=== PATIENT | female | born 1945 | race Caucasian/White ===

== ENCOUNTER 2016-11-05 17:58 | Emergency (ER) | payer MEDICARE, OTHER | END 2016-11-05 19:14 | disposition left against medical advice (07) | LOC: UCEAST 17:58 | DX: S91.339A Puncture wound without foreign body, unspecified foot, initial encounter (principal); W45.0XXA Nail entering through skin, initial encounter; Y93.9 Activity, unspecified; Y92.9 Unspecified place or not applicable; Z53.21 Procedure and treatment not carried out due to patient leaving prior to being seen by health care provider ==

== ENCOUNTER 2016-11-06 11:16 | Emergency (ER) | payer MEDICARE, OTHER ==
[2016-11-06 11:34] VITALS: BP 160/74
[2016-11-06] MEDS ORDERED: Tetan/Diph/Pertus SYR(Tdap)* 0.5 ML SYR(BOOSTRIX) use SYR IM ONE (11:42)
--- NOTE | 2016-11-06 11:55 | UC ---
Skin Complaint HPI - HPI Summary HPI Summary: pt reports that she stepped on a nail on November 03. Pt has been putting triple antibiotic ointment on. Pt is is not UTD for tetanus. - History of Current Complaint Chief Complaint: UCLaceration Time Seen by Provider: 11/06/16 11:40 Stated Complaint: FOOT LACERATION Hx Obtained From: Patient ?: No Onset/Duration: Sudden Onset Skin Exposure Onset/Duration: Days Ago - 4 days ago Timing: Constant Onset Severity: Mild Current Severity: Mild Location: Discrete, Foot (Left) Character: Redness, Painful Aggravating: Touch Alleviating: Other - rest and elevation Associated Signs & Symptoms: Positive: Tenderness Related History: Other: - stepped on nail - Allergy/Home Medications Allergies/Adverse Reactions: Allergies Allergy/AdvReac Type Severity Reaction Status Date / Time No Known Allergies Allergy Verified 08/01/12 15:36 Review of Systems Constitutional: Fever Skin: Other - scab, puncture wound Eyes: Negative ENT: Negative Respiratory: Negative Cardiovascular: Negative Gastrointestinal: Negative Genitourinary: Negative Motor: Negative Neurovascular: Negative Musculoskeletal: Myalgia Neurological: Negative Psychological: Negative All Other Systems Reviewed And Are Negative: Yes PMH/Surg Hx/FS Hx/Imm Hx Previously Healthy: Yes Endocrine History Of: Denies: Diabetes, Thyroid Disease Cardiovascular History Of: Reports: Hypertension Denies: Cardiac Disorders Respiratory History Of: Denies: COPD, Asthma GI/ History Of: Denies: Ulcer - Surgical History Surgical History: None - Family History Known Family History: Positive: Hypertension, Other - Father -- positive CVA Negative: Cardiac Disease, Diabetes - Social History Alcohol Use: Daily Alcohol Amount: 1-2 glasses of wine Substance Use Type: None Smoking Status (MU): Former Smoker When Did the Patient Quit Smoking/Using Tobacco: age 21 - Immunization History Most Recent Tetanus Shot: unknown Physical Exam Triage Information Reviewed: Yes Appearance: Well-Appearing Vital Signs: Initial Vital Signs Temp 98.1 F 11/06/16 11:31 Pulse 74 11/06/16 11:31 Resp 16 11/06/16 11:31 BP 160/74 11/06/16 11:31 Pulse Ox 96 11/06/16 11:31 Vital Signs Reviewed: Yes Eye Exam: Normal Neck exam: Normal Respiratory Exam: Normal Respiratory: Positive: No respiratory distress Musculoskeletal Exam: Normal Neurological Exam: Normal Psychological Exam: Normal Skin Exam: Other - small puncture wound in left mid medial plantar side foot. Tenderness with palpation Course/Dx - Course Course Of Treatment: I discussed with the pt the need to be UTD with tetanus and to watch for S/sx of infection - Differential Diagnoses - Skin Complaint Differential Diagnoses: Cellulitis, Other - puncture wound - Diagnoses Provider Diagnoses: puncture wound. possible tetanus exposure Discharge - Discharge Plan Condition: Stable Disposition: HOME Prescriptions: Cephalexin CAP* [Keflex 500 CAP*] 500 mg PO Q12H #10 cap Patient Education Materials: Puncture Wound (ED) Referrals: Elsa Reyna MD [Primary Care Provider] - If Needed (Please follow up with your PCP or return to clinic as needed. )
== END 2016-11-06 12:14 | disposition home or self-care (01) ==
LOC: UCEAST 11:16
DX: S91.342A Puncture wound with foreign body, left foot, initial encounter (principal); W45.0XXA Nail entering through skin, initial encounter; Y92.9 Unspecified place or not applicable; I10 Essential (primary) hypertension; Z87.891 Personal history of nicotine dependence
CPT/HCPCS: 90471; 90715; 99211; G0010; G0463

== ENCOUNTER 2017-03-15 17:44 | Emergency (ER) | payer MEDICARE, OTHER ==
[2017-03-15 17:52] VITALS: BP 150/86
[2017-03-15] MEDS ORDERED: DOXYcycline CAP(*) 100 MG PO ONE (18:21)
--- NOTE | 2017-03-15 18:39 | UC ---
General HPI - HPI Summary HPI Summary: GRANDSON HAD FLEAS ON BILATERAL ARMS. PATIENT HAS TWO AREA ON FOREARMS WITH SMALL (<1mm) JUMPING INSECT. EARLIER HAD ACTUAL TICK THAT SHE REMOVED FROM CHEST. NO AREA OF REDNESS. NO FEVER. NO JOINT PAIN. 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 - History of Current Complaint Chief Complaint: UCSkin Stated Complaint: TICK BITE Time Seen by Provider: 03/15/17 17:56 Hx Obtained From: Patient Onset/Duration: Sudden Onset, Lasting Hours, Still Present Onset Severity: Mild Current Severity: None Associated Signs & Symptoms: Negative: Cough, Fever, Headache, Nausea, Syncope, SOB - Allergy/Home Medications Allergies/Adverse Reactions: Allergies Allergy/AdvReac Type Severity Reaction Status Date / Time No Known Allergies Allergy Verified 08/01/12 15:36 PMH/Surg Hx/FS Hx/Imm Hx Previously Healthy: Yes - Surgical History Surgical History: None - Family History Known Family History: Positive: Hypertension, Other - Father -- positive CVA Negative: Cardiac Disease, Diabetes - Social History Occupation: Retired Lives: With Family Alcohol Use: Daily Alcohol Amount: 1-2 glasses of wine Substance Use Type: None Smoking Status (MU): Former Smoker When Did the Patient Quit Smoking/Using Tobacco: age 21 - Immunization History Most Recent Tetanus Shot: unknown Review of Systems Constitutional: Negative Skin: Rash - SMALL <1mm JUMPING INSECT ON BILATERAL FOREARMS Eyes: Negative ENT: Negative Respiratory: Negative Cardiovascular: Negative Gastrointestinal: Negative Genitourinary: Negative Motor: Negative Neurovascular: Negative Musculoskeletal: Negative Neurological: Negative Psychological: Negative All Other Systems Reviewed And Are Negative: Yes Physical Exam Triage Information Reviewed: Yes Appearance: Well-Appearing, No Pain Distress, Well-Nourished Vital Signs: Initial Vital Signs Temp 97 F 03/15/17 17:50 Pulse 78 03/15/17 17:50 Resp 16 03/15/17 17:50 BP 150/86 03/15/17 17:50 Pulse Ox 100 03/15/17 17:50 Vital Signs Reviewed: Yes Eye Exam: Normal ENT Exam: Normal ENT: Positive: Normal ENT inspection, TMs normal Dental Exam: Normal Neck exam: Normal Neck: Positive: Supple, Nontender Respiratory Exam: Normal Respiratory: Positive: Chest non-tender, Lungs clear, Normal breath sounds Cardiovascular Exam: Normal Cardiovascular: Positive: RRR, No Murmur, Pulses Normal Abdominal Exam: Normal Abdomen Description: Positive: Nontender, No Organomegaly Musculoskeletal Exam: Normal Musculoskeletal: Positive: Strength Intact, ROM Intact Neurological Exam: Normal Psychological Exam: Normal Skin: Positive: Other - #2 X SMALL (<1mm ) JUMPING INSECTS ON BILATERAL ARMS. Course/Dx - Differential Dx - Multi-Symptom Differential Diagnoses: Other - FLEA, SCABIES, TICK BITE Provider Diagnoses: TICK BITE PROPHYLAXIS; 2X FLEAS Discharge - Discharge Plan Condition: Stable Disposition: HOME Patient Education Materials: Lyme Disease (ED), Tick Bite (ED) Referrals: Elsa Reyna MD [Primary Care Provider] -
== END 2017-03-15 18:35 | disposition home or self-care (01) ==
LOC: UCEAST 17:44
DX: S50.862A Insect bite (nonvenomous) of left forearm, initial encounter (principal); S50.861A Insect bite (nonvenomous) of right forearm, initial encounter; W57.XXXA Bitten or stung by nonvenomous insect and other nonvenomous arthropods, initial encounter; Y93.9 Activity, unspecified; Y92.9 Unspecified place or not applicable; Z87.891 Personal history of nicotine dependence
CPT/HCPCS: 99211; A9270-GY; G0463

== ENCOUNTER 2017-08-13 15:04 | Emergency (ER) | payer MEDICARE, OTHER ==
[2017-08-13] MEDS ORDERED: NS 0.9% 1000 ML* 1,000 ML IV ONE (17:41)
[2017-08-13 18:25] LABS: ABS Basophils 0.1 10^3/ul (0-0.2); ABS Eosinophils 0.5 10^3/ul (0-0.6); ABS Lymphocytes 2.1 10^3/ul (1.0-4.8); ABS Monocytes 0.4 10^3/ul (0-0.8); ABS Neutrophils 3.7 10^3/ul (1.5-7.7); ABS Nucleated RBC 0 10^3/ul; Eosinophil % 7.1 % (0-6); Hematocrit 41 % (35-47); Lymphocyte % 31.5 % (25-47); Mean Corpuscular HGB Conc 34 g/dl (31-36); Mean Corpuscular Hemoglobin 31 pg (27-31); Mean Corpuscular Volume 91 fL (80-97); Mean Platelet Volume 8 um3 (7.4-10.4); Nucleated Red Blood Cells % 0; Platelet Count 301 10^3/ul (150-450); Red Blood Count 4.54 10^6/ul (4.0-5.4); Red Cell Distribution Width 14 % (10.5-15); White Blood Count 6.8 10^3/ul (3.5-10.8)
[2017-08-13 18:28] LABS: Urine Appearance Clear; Urine Blood Negative (Negative); Urine Color Straw; Urine Ketones Negative (Negative); Urine Protein Negative (Negative); Urine Specific Gravity 1.003 (1.010-1.030); Urine Urobilinogen Negative (Negative)
[2017-08-13 18:40] LABS: EGFR Non-African American 78.4 (>60)
[2017-08-13] MEDS ORDERED: Iohexol 300* (CONTRAST) 10 ML SDV IV ONE (20:55)
--- NOTE | 2017-08-13 21:42 | RAD ---
Indication: Abdominal pain. Contrast: Administered 88.1 ml of OMNIPAQUE 300 mg/ml CT of the abdomen and pelvis was performed after oral and IV contrast demonstration. Coronal and sagittal reconstructed images were obtained. The lung bases demonstrate no pleural fluid, nodules or masses. Heart is of normal size without evidence of pericardial effusion. There may be some minimal atelectasis in the left base. The liver is normal in size. No focal lesions or intrahepatic duct dilatation is noted. The gallbladder demonstrates no calcified gallstones, pericholecystic fluid or wall thickening. The spleen is normal in size. The common duct is not dilated. The pancreas demonstrates no mass or pancreatic duct dilatation. No adrenal lesions are noted. The kidneys demonstrate symmetric nephrograms without focal mass or hydronephrosis. Symmetric excretion is noted. Right-sided extrarenal pelvis is noted. Aorta demonstrates atherosclerosis without evidence of aneurysmal dilatation. Small left para-aortic lymph nodes are noted. CT of the pelvis demonstrates diverticulosis of the sigmoid colon. There is focal area of thickening in the left lower quadrant just adjacent to the urinary bladder consistent with diverticulitis. No peridiverticular abscess is noted currently. The uterus and ovaries are unremarkable. The urinary bladder is unremarkable. The bony structures are grossly unremarkable. IMPRESSION: Diverticulitis without evidence of peridiverticular abscess. Right-sided extrarenal pelvis is noted.
[2017-08-13] MEDS ORDERED: metroNIDAZOLE TAB* 250 MG PO ONE (22:29)
--- NOTE | 2017-08-13 22:35 | ED ---
Javier Levy Abhishek, scribed for Gisele Santiago MD on 08/13/17 at 1821 . GI/ HPI - HPI Summary HPI Summary: This patient is a 71 year old F presenting to [facility] with a chief complaint of weakness and low abd pain since 08/03/17 at night. Pt believed she had a UTI and called her doctor and she said her doctor would prescribe the antibiotics for her because it was an icy day and pt could not get in to the doctor's office to provide a urine specimen. PT began taking the first set of antibiotics ( ciprofloxacin: 500 mg twice a day) for 4 days (starting the 08/05/17) and later began to take the second set of antibiotics (cefdinir: 300 mg twice a day) starting on 08/09/17. According to the pt, the antibiotics have been ineffective. The pts physician's name is Ludell Viviane. Pt is currently on the 5th day of the cefdinir (08/13/17). By 08/09/17, pt began to worsen in condition and The doctor recommended entering the [facility] once pt discussed with her about the ineffectiveness of the antibiotics. The pain is a described as a gradual tenderness. The pain radiated in the back but pt states that may be due to s/p fall that occurred around 07/25/17 where she hurt her backbone. The patient rates the pain 6/10 in severity. Symptoms aggravated by nothing. Symptoms alleviated by nothing. Patient reports body aches, MIRANDA, fatigue, suprapubic pain (diffuse), diarrhea, and urinary frequency. Pt also has had large BM recently. Patient denies vomiting, denies melena, hematochezia, hematuria. Denies fever. Medications reviewed and pt reported Micardis 80 mg, Probiotics 100 mg, and Vitamin D3. Allergies were reviewed. - History of Current Complaint Chief Complaint: EDUrogenitalProblems Time Seen by Provider: 08/13/17 15:31 Stated Complaint: UTI,NEEDS IMAGING PER DR Bustamante Obtained From: Patient Onset/Duration: Started Days Ago - 08/03/17, Atraumatic, Still Present, Worse Since - 08/09/17 Timing: Constant, Lasting Days - 08/03/17 Severity: Moderate Current Severity: Moderate Pain Intensity: 6 Location of Pain: Suprapubic Pain Characteristics: Other: - pain is described as a gradual "tension" Pain Radiates to: Back - pt states this may be due to recent fall (on 07/25/17) Associated Signs and Symptoms: Positive: Back Pain, Weakness, Diarrhea, Abdominal Pain - suprapubic region, UTI Symptoms, Other: - body aches, MIRANDA, urinary frequency, large BM, and fatigue. Negative: Vomiting Aggravating Factor(s): Nothing Alleviating Factor(s): Nothing - Additional Pertinent History Primary Care Physician: Elsa Pan Referred By: PCP - Allergy/Home Medications Allergies/Adverse Reactions: Allergies Allergy/AdvReac Type Severity Reaction Status Date / Time No Known Allergies Allergy Verified 08/01/12 15:36 PMH/Surg Hx/FS Hx/Imm Hx Previously Healthy: No Endocrine/Hematology History: Denies: Hx Diabetes, Hx Thyroid Disease Cardiovascular History: Reports: Hx Hypertension Respiratory History: Denies: Hx Asthma, Hx Chronic Obstructive Pulmonary Disease (COPD) GI History: Denies: Hx Ulcer History: Denies: Hx Renal Disease - Surgical History Surgery Procedure, Year, and Place: cataracts, Dr. Grayson Infectious Disease History: No Infectious Disease History: Denies: Hx Clostridium Difficile, Hx Hepatitis, Hx Human Immunodeficiency Virus (HIV), Hx of Known/Suspected MRSA, Hx Shingles, Hx Tuberculosis, Hx Known/ Suspected VRE, Hx Known/Suspected VRSA, History Other Infectious Disease, Traveled Outside the [place] in Last 30 Days - Family History Known Family History: Positive: Hypertension, Other - Father -- positive CVA Negative: Cardiac Disease, Diabetes - Social History Lives: Alone - 06/2017 Alcohol Use: Weekly Alcohol Amount: 1-2 glasses of wine sometimes Substance Use Type: Reports: None Smoking Status (MU): Former Smoker Review of Systems Positive: Fatigue Eyes: Negative ENT: Negative Cardiovascular: Negative Respiratory: Negative Gastrointestinal: Other - Large BM Positive: Abdominal Pain - suprapubic region, lower abdomen , Diarrhea. Negative: Vomiting Positive: frequency Positive: Myalgia - body aches Skin: Negative Positive: Headache Psychological: Normal All Other Systems Reviewed And Are Negative: Yes Physical Exam - Summary Physical Exam Summary: Appearance: Ill-appearing, moderate pain distress, Well-nourished Skin: Warm, color reflects adequate perfusion Head: Normal Head/Face inspection Eyes: Conjunctiva clear ENT: Normal inspection Neck: Supple, no nodes, no JVD. Respiratory: Lungs clear, Normal breath sounds, no respiratory distress Cardio: RRR, No murmur, pulses normal, brisk capillary refill Abdomen: Mild diffuse suprapubic tenderness, no guarding, no rebound, no masses , no bruits, no CVA tenderness Bowel sounds: present Musculoskeletal: Strength Intact/ ROM intact. No calf tenderness. No edema. Neuro: Alert, muscle tone normal, facial symmetry, speech normal, sensory/motor intact Psychological: Normal Triage Information Reviewed: Yes Vital Signs On Initial Exam: Initial Vitals Temp Pulse Resp BP Pulse Ox 98.6 F 79 17 137/86 95 08/13/17 15:15 08/13/17 15:15 08/13/17 15:15 08/13/17 15:15 08/13/17 15:15 Vital Signs Reviewed: Yes - Harrells Coma Scale Coma Scale Total: 15 Diagnostics - Vital Signs Vital Signs Temp Pulse Resp BP Pulse Ox 08/13/17 15:15 98.6 F 79 17 137/86 95 - Laboratory Lab Results: Lab Results 08/13/17 08/13/17 08/13/17 Range/Units 18:10 18:10 18:10 WBC 6.8 (3.5-10.8) 10^3/ul RBC 4.54 (4.0-5.4) 10^6/ul Hgb 14.0 (12.0-16.0) g/dl Hct 41 (35-47) % MCV 91 (80-97) fL MCH 31 (27-31) pg MCHC 34 (31-36) g/dl RDW 14 (10.5-15) % Plt Count 301 (150-450) 10^3/ul MPV 8 (7.4-10.4) um3 Neut % (Auto) 54.0 (38-83) % Lymph % (Auto) 31.5 (25-47) % [place] % (Auto) 6.2 (1-9) % Eos % (Auto) 7.1 H (0-6) % Baso % (Auto) 1.2 (0-2) % Absolute Neuts (auto) 3.7 (1.5-7.7) 10^3/ul Absolute Lymphs (auto) 2.1 (1.0-4.8) 10^3/ul Absolute Monos (auto) 0.4 (0-0.8) 10^3/ul Absolute Eos (auto) 0.5 (0-0.6) 10^3/ul Absolute Basos (auto) 0.1 (0-0.2) 10^3/ul Absolute Nucleated RBC 0 10^3/ul Nucleated RBC % 0 Sodium 136 (133-145) mmol/L Potassium 3.6 (3.5-5.0) mmol/L Chloride 103 (101-111) mmol/L Carbon Dioxide 26 (22-32) mmol/L Anion Gap 7 (2-11) mmol/L BUN 10 (6-24) mg/dL Creatinine 0.73 (0.51-0.95) mg/dL Est GFR ( Amer) 100.8 (>60) Est GFR (Non-Af Amer) 78.4 (>60) BUN/Creatinine Ratio 13.7 (8-20) Glucose 125 H (70-100) mg/dL Lactic Acid 1.4 (0.5-2.0) mmol/L Calcium 9.7 (8.6-10.3) mg/dL Total Bilirubin 0.30 (0.2-1.0) mg/dL AST 35 (13-39) U/L ALT 34 (7-52) U/L Alkaline Phosphatase 75 (34-104) U/L Total Protein 7.1 (6.4-8.9) g/dL Albumin 3.7 (3.2-5.2) g/dL Globulin 3.4 (2-4) g/dL Albumin/Globulin Ratio 1.1 (1-3) Urine Color Urine Appearance Urine pH (5-9) Ur Specific [place] (1.010-1.030) Urine Protein (Negative) Urine Ketones (Negative) Urine Blood (Negative) Urine Nitrate (Negative) Urine Bilirubin (Negative) Urine Urobilinogen (Negative) Ur Leukocyte Esterase (Negative) Urine WBC (Auto) (Absent) Urine RBC (Auto) (Absent) Ur Squamous Epith Cells (Absent) Urine Bacteria (Absent) Urine Glucose (Negative) 08/13/17 Range/Units 18:10 WBC (3.5-10.8) 10^3/ul RBC (4.0-5.4) 10^6/ul Hgb (12.0-16.0) g/dl Hct (35-47) % MCV (80-97) fL MCH (27-31) pg MCHC (31-36) g/dl RDW (10.5-15) % Plt Count (150-450) 10^3/ul MPV (7.4-10.4) um3 Neut % (Auto) (38-83) % Lymph % (Auto) (25-47) % [place] % (Auto) (1-9) % Eos % (Auto) (0-6) % Baso % (Auto) (0-2) % Absolute Neuts (auto) (1.5-7.7) 10^3/ul Absolute Lymphs (auto) (1.0-4.8) 10^3/ul Absolute Monos (auto) (0-0.8) 10^3/ul Absolute Eos (auto) (0-0.6) 10^3/ul Absolute Basos (auto) (0-0.2) 10^3/ul Absolute Nucleated RBC 10^3/ul Nucleated RBC % Sodium (133-145) mmol/L Potassium (3.5-5.0) mmol/L Chloride (101-111) mmol/L Carbon Dioxide (22-32) mmol/L Anion Gap (2-11) mmol/L BUN (6-24) mg/dL Creatinine (0.51-0.95) mg/dL Est GFR ( Amer) (>60) Est GFR (Non-Af Amer) (>60) BUN/Creatinine Ratio (8-20) Glucose (70-100) mg/dL Lactic Acid (0.5-2.0) mmol/L Calcium (8.6-10.3) mg/dL Total Bilirubin (0.2-1.0) mg/dL AST (13-39) U/L ALT (7-52) U/L Alkaline Phosphatase (34-104) U/L Total Protein (6.4-8.9) g/dL Albumin (3.2-5.2) g/dL Globulin (2-4) g/dL Albumin/Globulin Ratio (1-3) Urine Color Straw Urine Appearance Clear Urine pH 6.0 (5-9) Ur Specific [place] 1.003 L (1.010-1.030) Urine Protein Negative (Negative) Urine Ketones Negative (Negative) Urine Blood Negative (Negative) Urine Nitrate Negative (Negative) Urine Bilirubin Negative (Negative) Urine Urobilinogen Negative (Negative) Ur Leukocyte Esterase 1+ H (Negative) Urine WBC (Auto) Trace(0-5/hpf) (Absent) Urine RBC (Auto) Trace(0-2/hpf) (Absent) Ur Squamous Epith Cells Present H (Absent) Urine Bacteria 1+ H (Absent) Urine Glucose Negative (Negative) Result Diagrams: 08/13/17 18:10 08/13/17 18:10 Lab Statement: Any lab studies that have been ordered have been reviewed, and results considered in the medical decision making process. Re-Evaluation - Re-Evaluation First Eval Re-Evaluation Time: 18:30 - declines pain medication, drinking IV contrast for CT, discussesd plan of care in the ED Change: Unchanged GIGU Course/Dx - Course Course Of Treatment: [facility] a chief complaint of UTI like symptoms (according to the pt). The pt also reports of body aches, MIRANDA, fatigue, suprapubic pain (diffuse), diarrhea, weakness, and urinary frequency. pt was also previously prescirbed antibiotics for UTI by her PCP Elsa Reyna which is stated in the HPI. Pt sxs have not improved despite the antibiotics. Pt has some diarrhea, but no bloody diarrhea, no hx C diff. Pt has hx diverticulitis on colonsocopy in the past. We are currently awaiting CT A /P and pt is pending disposition. The pt will be signed out to Dr. Stanton. The Dx will be abd pain and UTI. - Diagnoses Differential Diagnoses - Female: Bowel Obstruction, Cystitis, Diverticulitis, Diarrhea, Diverticulosis, Gastroenteritis (Viral), Gastroenteritis (Bacterial), Pyelonephritis Provider Diagnoses: Abdominal pain, UTI (urinary tract infection) Discharge - Discharge Plan Condition: Stable Disposition: OTHER Discharge Disposition Comment: Care to Dr. Stanton, 1900 08/13/17, awaiting CT A/ P and pending disposition. Referrals: Elsa Reyna MD [Primary Care Provider] - The documentation as recorded by the Javier grant Abhishek accurately reflects the service I personally performed and the decisions made by , Gisele Santiago MD.
--- NOTE | 2017-08-13 22:45 | ED ---
Jone Levy Natalie, scribed for Trent Stanton MD on 08/13/17 at 2235 . Progress - Results/Orders Results/Orders: Abdomen/Pelvis CT: Diverticulitis without evidence of peridiverticular abscess. Right-sided extrarenal pelvis is noted. ED physician has reviewed this report. Re-Evaluation - Re-Evaluation First Eval Re-Evaluation Time: 18:30 - declines pain medication, drinking IV contrast for CT, discussesd plan of care in the ED Change: Unchanged Course/Dx - Course Course Of Treatment: The patient was a sign-out from Dr. Santiago. The patient has mild tenderness in LLQ. Abdomen/Pelvis CT shows evidence of diverticulitis. The dx is diverticulitis. The patient is prescribed Cipro and Flagyl. The patient will be discharged home. The patient is agreeable with this plan."UTI" maybe secondary to local inflammation from the diverticulitis - Diagnoses Provider Diagnoses: Abdominal pain, UTI (urinary tract infection) The documentation as recorded by the Jone grant Natalie accurately reflects the service I personally performed and the decisions made by , Trent Stanton MD.
[2017-08-13 23:33] VITALS: BP 168/68
== END 2017-08-13 23:00 | disposition home or self-care (01) ==
LOC: ED 15:04
DX: R10.30 Lower abdominal pain, unspecified (principal); N39.0 Urinary tract infection, site not specified; Z87.19 Personal history of other diseases of the digestive system; Z87.891 Personal history of nicotine dependence
CPT/HCPCS: 36415; 74177; 80053; 81003; 81015; 83605; 85025; 87086; 96360; 99282; A9270-GY; Q9967

== ENCOUNTER → 2018-10-06 21:13 | Emergency (ER) | payer MEDICARE, OTHER ==
--- OUTSIDE RECORDS SUMMARY | 2018-10-06 21:20 | XMS REPORT | Continuity of Care Document ---
:1945 External Reference #:[id number] Author Name Ifeoma Castillo Care Team Providers Name Role Phone Elsa Cooper MD Primary Care Physician Unavailable Payers Date Identification Numbers Payment Provider Subscriber Policy Number: [id number] Medicare Jonh Topete PayID: [id number] [address] [place] [address] Policy Number: [id number] [employer] Jonh Topete PayID: [id number] [address] [place] [address] Advance Directives Description No Information Available Problems Description No Information Family History Description No Information Available Social History Type Date Description Comments Sex Unknown Tobacco Use Start: Unknown End: Unknown Patient is a former smoker Smoking Status Reviewed: 02/03/18 Patient is a former smoker Allergies, Adverse Reactions, Alerts Description No Known Drug Allergies Medications Medication Date Status Form Strength Qnty SIG Indications Ordering Provider Neal Active Tablets 40mg 1 by mouth Unknown every day Immunizations Description No Information Available Vital Signs Date Vital Result Comment 02/03/2018 8:00am Height 64 inches 5'4" Weight 136.00 lb Heart Rate 70 /min BP Systolic Sitting 104 mmHg BP Diastolic Sitting 70 mmHg Respiratory Rate 16 /min Pain Level 4 BMI (Body Mass Index) 23.3 kg/m2 Results Description No Information Available Procedures Date Code Description Status 09/25/2018 03114 Cath PLMT&NJX L Ventriculog Img S&I Completed 09/25/2018 91322 ECHO Transthorasic Realtime 2D W Doppler & Color Flow Hosp Completed 09/25/2018 18304 Revascularization Acute Total/Subtotal Occlusion Completed Encounters Type Date Location Provider Dx Diagnosis Office Visit 09/26/2018 [facility] Sharon Rosales NP I21.4 Non-St elevation 3: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
--- OUTSIDE RECORDS SUMMARY | 2018-10-06 21:20 | XMS REPORT | Continuity of Care Document ---
:1945 External Reference #:[id number] Author Name Mitali Man Care Team Providers Name Role Phone Elsa Cooper MD Primary Care Physician Unavailable Payers Date Identification Numbers Payment Provider Subscriber Policy Number: [id number] Medicare Jonh Topete PayID: [id number] [address] [place] [address] Policy Number: [id number] [employer] Jonh Topete PayID: [id number] [address] [place] [address] Advance Directives Description No Information Available Problems Description No Information Family History Description No Information Available Social History Type Date Description Comments Sex Unknown Marital Status Lives With Alone Occupation Disabled Tobacco Use Start: Unknown End: Unknown Patient is a former smoker Smoking Status Reviewed: 10/05/18 Patient is a former smoker Allergies, Adverse Reactions, Alerts Description No Known Drug Allergies Medications Medication Date Status Form Strength Qnty SIG Indications Ordering Provider Amiodarone Active Tablets 200mg 1 by Unknown HCL 000 mouth every day Aspirin 81 Active Chewtabs 81mg 90units 1 by Sunil Duffy Low Dose 000 mouth Rich, DO every day FACC Lipitor 0 Active Tablets 80mg 90tabs 1 by Sunil S. 000 mouth Rich, DO every day FACC Coreg 0 Active Tablets 3.125mg 180tabs 1 by Sunil S. 000 mouth Rich, DO twice a FACC day. Plavix 0 Active Tablets 75mg 90tabs 1 by Sunil S. 000 mouth Rich, DO every day FACC Losartan 0 Active Tablets 25mg 90tabs 1 by Sunil SJuliette Potassium 000 mouth Rich, DO every day FACC Nitrostat 0 Active Tablets Sub 0.4mg one sl Unknown 000 q5min up to 3 doses as needed Coreg Hx Tablets 6.25mg 60tabs tab Harinder 019 - by mouth Ghassan, twice a MD 019 day Micardis 0000/0 Hx Tablets 40mg 1 by Unknown 000 - mouth every day 019 Eliquis 0000/0 Hx Tablets 5mg 1 by Unknown 000 - mouth twice a 019 day Immunizations Description No Information Available Vital Signs Date Vital Result Comment 10/05/2018 10:25am Height 64 inches 5'4" Weight 137.00 lb no shoes Heart Rate 62 /min BP Systolic Sitting 110 mmHg lue reg cuff BP Diastolic Sitting 70 mmHg lue reg cuff BP Systolic Standing 108 mmHg lue reg cuff BP Diastolic Standing 70 mmHg lue reg cuff Respiratory Rate 16 /min BMI (Body Mass Index) 23.5 kg/m2 Ejection Fraction 25-30% echo.09/25/18 02/03/2018 8:00am Height 64 inches 5'4" Weight 136.00 lb Heart Rate 70 /min BP Systolic Sitting 104 mmHg BP Diastolic Sitting 70 mmHg Respiratory Rate 16 /min Pain Level 4 BMI (Body Mass Index) 23.3 kg/m2 Results Description No Information Available Procedures Date Code Description Status 10/05/2018 96142 EKG Tracing & Interpretation Completed 09/25/2018 86291 Cath PLMT&NJX L Ventriculog Img S&I Completed 09/25/2018 12605 ECHO Transthorasic Realtime 2D W Doppler & Color Flow Hosp Completed 09/25/2018 29554 Revascularization Acute Total/Subtotal Occlusion Completed Encounters Type Date Location Provider Dx Diagnosis Office Visit 09/26/2018 [facility] Sharon Rosales NP I21.4 Non-St elevation 3: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 leg M19.071 Primary osteoarthritis, right ankle and foot Plan of Treatment Future Appointment(s):11/08/2018 1:40 pm - Sunil Rich, DO FACC at [facility]11/06/2018 1:30 pm - Traveling ECHO 1 at [facility]10/05/2018 - Sunil Rich, DO FACCI25.2 Old myocardial infarctionComments: Keep the eliquis at home in case we need to restart it in the future.We will likely stop the amiodarone after a few months and see if the heart arrhythmias return.Follow up:Please schedule limited echo on November 06 Follow up with me afterwards that week on a day and time when Dr. Murray is in the emvjpmT62.5 Ischemic cardiomyopathyNew Orders:Echocardiogram, Limited Study, Scheduled: 03/19
--- NOTE | 2018-10-06 21:36 | ED ---
Dizziness - HPI Summary HPI Summary: This patient is a 73 year old F brought in by ambulance to [facility] accompanied by family with a chief complaint of dizziness that began prior to arrival and resolved within 20 minutes. The patient states her symptoms began when she was resting and felt a panic. The patient rates the pain 0/10 in severity. Symptoms aggravated by nothing. Symptoms alleviated by nothing. Patient reports bilateral tingling in legs. Patient denies palpitations, CP, and SOB. Patient denies a history of anxiety. - History Of Current Complaint Chief Complaint: EDDizziness Stated Complaint: GENERAL ILLNESS PER EMS Time Seen by Provider: 10/06/18 21:15 Hx Obtained From: Patient Onset/Duration: Resolved Timing: Constant Severity Initially: Mild Severity Currently: Mild Character: Dizzy Aggravating Factor(s): Nothing Alleviating Factor(s): Nothing Associated Signs And Symptoms: Positive: Other: - Positive bilateral tingling in legs. Negative palpitations. - Allergies/Home Medications Allergies/Adverse Reactions: Allergies Allergy/AdvReac Type Severity Reaction Status Date / Time No Known Allergies Allergy Verified 08/01/12 15:36 PMH/Surg Hx/FS Hx/Imm Hx Previously Healthy: No Endocrine/Hematology History: Denies: Hx Diabetes, Hx Thyroid Disease Cardiovascular History: Reports: Hx Hypertension Denies: Hx Angina, Hx Coronary Artery Disease, Hx Hypercholesterolemia, Hx Myocardial Infarction, Hx Peripheral Vascular Disease, Hx Valvular Heart Disease Respiratory History: Denies: Hx Asthma, Hx Chronic Obstructive Pulmonary Disease (COPD) GI History: Denies: Hx Ulcer History: Denies: Hx Renal Disease Sensory History: Reports: Hx Contacts or Glasses Denies: Hx Legally Blind, Hx Deafness, Hx Hearing Aid Opthamlomology History: Reports: Hx Contacts or Glasses Denies: Hx Legally Blind Neurological History: Denies: Hx Seizures, Hx Transient Ischemic Attacks (TIA) - Surgical History Surgery Procedure, Year, and Place: cataracts, Dr. Grayson Infectious Disease History: No Infectious Disease History: Denies: Hx Clostridium Difficile, Hx Hepatitis, Hx Human Immunodeficiency Virus (HIV), Hx of Known/Suspected MRSA, Hx Shingles, Hx Tuberculosis, Hx Known/ Suspected VRE, Hx Known/Suspected VRSA, History Other Infectious Disease, Traveled Outside the [place] in Last 30 Days - Family History Known Family History: Positive: Hypertension, Other - Father -- positive CVA Negative: Cardiac Disease, Diabetes - Social History Occupation: Retired Lives: Alone Alcohol Use: Occasionally Alcohol Amount: 1-2 glasses of wine sometimes Hx Substance Use: No Substance Use Type: Reports: None Hx Tobacco Use: Yes Smoking Status (MU): Former Smoker Review of Systems Negative: Palpitations, Chest Pain Negative: Shortness Of Breath Positive: Other - Positive bilateral leg tingling Neurological: Other - Positive dizziness All Other Systems Reviewed And Are Negative: Yes Physical Exam - Summary Physical Exam Summary: VITAL SIGNS: Reviewed. GENERAL: Patient is a well-developed and nourished female who is lying comfortable in the stretcher. Patient is not in any acute respiratory distress. HEAD AND FACE: No signs of trauma. No ecchymosis, hematomas or skull depressions. No sinus tenderness. EYES: PERRLA, EOMI x 2, No injected conjunctiva, no nystagmus. EARS: Hearing grossly intact. Ear canals and tympanic membranes are within normal limits. MOUTH: Oropharynx within normal limits. NECK: Supple, trachea is midline, no adenopathy, no JVD, no carotid bruit, no c- spine tenderness, neck with full ROM. CHEST: Symmetric, no tenderness at palpation LUNGS: Clear to auscultation bilaterally. No wheezing or crackles. CVS: Regular rate and rhythm, S1 and S2 present, no murmurs or gallops appreciated. ABDOMEN: Soft, non-tender. No signs of distention. No rebound no guarding, and no masses palpated. Bowel sounds are normal. EXTREMITIES: FROM in all major joints, no edema, no cyanosis or clubbing. NEURO: Alert and oriented x 3. No acute neurological deficits. Speech is normal and follows commands. SKIN: Dry and warm Triage Information Reviewed: Yes Vital Signs On Initial Exam: Initial Vitals Temp Pulse Resp BP Pulse Ox 98.9 F 58 16 110/70 97 10/06/18 21:18 10/06/18 21:18 10/06/18 21:18 10/06/18 21:18 10/06/18 21:18 Vital Signs Reviewed: Yes Diagnostics - Vital Signs Vital Signs Temp Pulse Resp BP Pulse Ox 10/06/18 21:18 98.9 F 58 16 110/70 97 - Laboratory Result Diagrams: 10/06/18 22:10 10/06/18 22:10 Lab Statement: Any lab studies that have been ordered have been reviewed, and results considered in the medical decision making process. - Radiology Chest XR Radiology Interpretation Completed By: ED Physician Summary of Radiographic Findings: CXR reveals, per ED physician, no acute process. - EKG 220 Cardiac Rate: NL EKG Rhythm: Sinus Rhythm - 58 BPM EKG Comparison: No Significant Change Summary of EKG Findings: An EKG taken at 2200 reveals sinus rhythm at 58 BPM with Q waves and minimal ST elevation in the inferior leads, Q waves in anterior leads, and no change from the EKG taken on 09/28/2018. Re-Evaluation - Re-Evaluation First Eval Re-Evaluation Time: 23:02 Change: Improved Comment: Patient walked to the bathroom with no issues. Dizzy Course/Dx - Course Course Of Treatment: This patient is a 73 year old F brought in by ambulance to [facility] accompanied by family with a chief complaint of dizziness that began prior to arrival and resolved within 20 minutes. Physical Exam Findings: Nml. An EKG taken at 2200 reveals sinus rhythm at 58 BPM with Q waves and minimal ST elevation in the inferior leads, Q waves in anterior leads, and no change from the EKG taken on 09/28/2018. CXR reveals, per ED physician, no acute process. Patient ambulated in the emergency department with no difficulty. She is at baseline. Reviewed lab results, seems like symptoms are most likely secondary to conversion disorder or anxiety. Patient is not orthostatic. Patient bloodwork is within normal limits. Her BNP is elevated but improved. Patients symptoms could be secondary to anxiety. In the ED course the patient was given Patient will be discharged with follow up from PCP. The patient is agreeable with this plan. - Diagnoses Provider Diagnoses: Dizziness Discharge - Sign-Out/Discharge Documenting (check all that apply): Patient Departure - Discharge home Patient Received Moderate/Deep Sedation with Procedure: No - Discharge Plan Condition: Stable Disposition: HOME Patient Education Materials: Dizziness (ED) Referrals: Elsa Reyna MD [Primary Care Provider] - 2 Days Additional Instructions: RETURN TO THE EMERGENCY DEPARTMENT FOR NEW OR WORSENING SYMPTOMS - Attestation Statements Document Initiated by Scribe: Yes Documenting Scribe: Ruth Ann Dubois Provider For Whom Scribe is Documenting (Include Credential): Dr. Ramona Vasquez MD Scribe Attestation: I, Ruth Ann Dubois, scribed for Dr. Ramona Vasquez MD on 10/06/18 at 2301. Status of Scribe Document: Ready
[2018-10-06 22:19] LABS: ABS Basophils 0.1 10^3/ul (0-0.2); ABS Eosinophils 0.2 10^3/ul (0-0.6); ABS Lymphocytes 1.9 10^3/ul (1.0-4.8); ABS Monocytes 0.9 10^3/ul (0-0.8); ABS Neutrophils 5.9 10^3/ul (1.5-7.7); ABS Nucleated RBC 0 10^3/ul; Eosinophil % 2.1 %; Hematocrit 42 % (35-47); Hemoglobin 13.9 g/dl (12.0-16.0); Mean Corpuscular HGB Conc 33 g/dl (31-36); Mean Corpuscular Hemoglobin 31 pg (27-31); Mean Corpuscular Volume 94 fL (80-97); Nucleated Red Blood Cells % 0.1; Platelet Count 230 10^3/ul (150-450); Red Blood Count 4.46 10^6/ul (4.00-5.40); Red Cell Distribution Width 13 % (10.5-15); White Blood Count 8.9 10^3/ul (3.5-10.8)
[2018-10-06 22:31] LABS: Activated Partial Thrombo Time 28.4 seconds (26.0-36.3); INR 0.99 (0.77-1.02)
[2018-10-06 22:38] LABS: Albumin 3.9 g/dL (3.2-5.2); Albumin/Globulin Ratio 1.3 (1-3); BUN/Creatinine Ratio 25.4 (8-20); EGFR African American 97.4 (>60); EGFR Non-African American 80.5 (>60); Globulin 2.9 g/dL (2-4); Magnesium 2.3 mg/dL (1.9-2.7); Potassium 4.1 mmol/L (3.5-5.0); Total Bilirubin 0.5 mg/dL (0.2-1.0); Total Protein 6.8 g/dL (6.4-8.9); Troponin I 0.02 ng/mL (<0.04)
[2018-10-06 23:22] VITALS: BP 109/59
[2018-10-06 23:26] LABS: TSH (Thyroid Stimulating Horm) 13.06 mcIU/mL (0.34-5.60)
== END | disposition home or self-care (01) ==
LOC: ED 21:13
DX: R42 Dizziness and giddiness (principal); I10 Essential (primary) hypertension; Z87.891 Personal history of nicotine dependence; R20.2 Paresthesia of skin
CPT/HCPCS: 36415; 71045; 80053; 83735; 83880; 84443; 84484; 85025; 85610; 85730; 93005; 99283

== ENCOUNTER 2019-02-17 11:29 | Observation (INO) | payer MEDICARE, OTHER ==
[2019-02-17 12:02] LABS: ABS Basophils 0.1 10^3/ul (0-0.2); ABS Eosinophils 0.2 10^3/ul (0-0.6); ABS Lymphocytes 0.9 10^3/ul (1.0-4.8); ABS Monocytes 0.6 10^3/ul (0-0.8); ABS Neutrophils 3.5 10^3/ul (1.5-7.7); Eosinophil % 3.4 %; Hematocrit 39 % (35-47); Hemoglobin 12.8 g/dL (12.0-16.0); Lymphocyte % 16.5 %; Mean Corpuscular HGB Conc 33 g/dL (31-36); Mean Corpuscular Hemoglobin 32 pg (27-31); Mean Corpuscular Volume 96 fL (80-97); Nucleated Red Blood Cells % 0.1; Platelet Count 151 10^3/uL (150-450); Red Blood Count 4.05 10^6 /uL (3.70-4.87); Red Cell Distribution Width 14 % (10-15); White Blood Count 5.2 10^3/uL (3.5-10.8)
--- NOTE | 2019-02-17 12:05 | ED ---
HPI Chest Pain - HPI Summary HPI Summary: This patient is a 73 year old F presenting to ED with a chief complaint of heart discomfort/soreness since 02/16/19. She also reports dizziness, a dry cough since 02/15/19, a back pain that has since resolved, and tiredness. Patient has a history of TX. Prior to her TX in September 2018, she also had a cough. They put stents in, and she reports doing well until now. She is unsure if she has a cold or a heart problem this time. She did not take NTG prior to arriving. The patient rates the pain 0/10 in severity. Symptoms aggravated by nothing. Symptoms alleviated by nothing. - History of Current Complaint Chief Complaint: EDChestPainROMI Time Seen by Provider: 02/17/19 11:47 Hx Obtained From: Patient Onset/Duration: Started Days Ago - 02/16/19, Still Present Timing: Constant Initial Severity: Mild Current Severity: Mild Pain Intensity: 0 Pain Scale Used: 0-10 Numeric Chest Pain Location: Discrete at: - "Heart soreness" Chest Pain Radiates: Yes Chest Pain Radiates To:: Back Character: Other: - Soreness Aggravating Factor(s): Nothing Alleviating Factor(s): Nothing Associated Signs and Symptoms: Positive: Dizziness, Cough - Dry, Back Pain Related History: Similar Episode/Dx as: - Previous TX - Additional Pertinent History Primary Care Physician: STEVEN - Allergy/Home Medications Allergies/Adverse Reactions: Allergies Allergy/AdvReac Type Severity Reaction Status Date / Time amiodarone Allergy See Comment Verified 02/17/19 14:28 PMH/Surg Hx/FS Hx/Imm Hx Endocrine/Hematology History: Denies: Hx Diabetes, Hx Thyroid Disease Cardiovascular History: Reports: Hx Hypertension, Hx Myocardial Infarction Denies: Hx Angina, Hx Coronary Artery Disease, Hx Deep Vein Thrombosis, Hx Hypercholesterolemia, Hx Peripheral Vascular Disease, Hx Valvular Heart Disease Respiratory History: Denies: Hx Asthma, Hx Chronic Obstructive Pulmonary Disease (COPD) GI History: Denies: Hx Ulcer History: Denies: Hx Renal Disease Sensory History: Reports: Hx Contacts or Glasses Denies: Hx Legally Blind, Hx Deafness, Hx Hearing Aid Opthamlomology History: Reports: Hx Contacts or Glasses Denies: Hx Legally Blind Neurological History: Denies: Hx Seizures, Hx Transient Ischemic Attacks (TIA) - Surgical History Surgery Procedure, Year, and Place: cataracts, Dr. Grayson. stents in September 2018 Infectious Disease History: No Infectious Disease History: Denies: Hx Clostridium Difficile, Hx Hepatitis, Hx Human Immunodeficiency Virus (HIV), Hx of Known/Suspected MRSA, Hx Shingles, Hx Tuberculosis, Hx Known/ Suspected VRE, Hx Known/Suspected VRSA, History Other Infectious Disease, Traveled Outside the [place] in Last 30 Days - Family History Known Family History: Positive: Hypertension, Other - Father -- positive CVA Negative: Cardiac Disease, Diabetes - Social History Alcohol Use: Occasionally Alcohol Amount: 1-2 glasses of wine sometimes Hx Substance Use: No Substance Use Type: Reports: None Hx Tobacco Use: Yes Smoking Status (MU): Former Smoker Review of Systems Constitutional: Other - Tiredness Positive: Chest Pain - "heart soreness" Positive: Cough - Dry Neurological: Other - Dizziness All Other Systems Reviewed And Are Negative: Yes Physical Exam - Summary Physical Exam Summary: GENERAL: Patient is a well-developed and nourished F who is lying comfortable in the stretcher. Patient is not in any acute respiratory distress. HEAD AND FACE: Normocephalic EYES: PERRLA, EOMI x 2. EARS: Hearing grossly intact. MOUTH: Oropharynx within normal limits. NECK: Supple, trachea is midline, no adenopathy, no JVD, no carotid bruit. CHEST: Symmetric, no tenderness at palpation LUNGS: Crackles in base of left lung CVS: Regular rate and rhythm, S1 and S2 present, no murmurs or gallops appreciated. ABDOMEN: Soft, non-tender. Bowel sounds are normal. No abnormal abdominal pulsations. EXTREMITIES: Full ROM in all major joints, no edema, no cyanosis or clubbing. NEURO: Alert and oriented x 3. No acute neurological deficits. Speech is normal and follows commands. SKIN: Dry and warm Triage Information Reviewed: Yes Vital Signs On Initial Exam: Initial Vitals Temp Pulse Resp BP Pulse Ox 98.5 F 67 18 136/60 97 02/17/19 11:37 02/17/19 11:37 02/17/19 11:37 02/17/19 11:37 02/17/19 11:37 Vital Signs Reviewed: Yes Diagnostics - Vital Signs Vital Signs Temp Pulse Resp BP Pulse Ox 02/17/19 11:37 98.5 F 67 18 136/60 97 - Laboratory Result Diagrams: 02/18/19 05:31 02/18/19 05:31 Lab Statement: Any lab studies that have been ordered have been reviewed, and results considered in the medical decision making process. - Radiology CXR Radiology Interpretation Completed By: Radiologist Summary of Radiographic Findings: No active cardiopulmonary disease is noted. Dr. Schumacher has reviewed this radiology report. - EKG 1133 Cardiac Rate: NL - 60 BPM EKG Rhythm: Sinus Rhythm EKG Comparison: Other - Improved Summary of EKG Findings: NSR at 60 BPM, inverted T waves in anterior and lateral leads, improved compared to previous EKGs. Re-Evaluation - Re-Evaluation First Eval Re-Evaluation Time: 13:09 Comment: Discussed results with patient. Patient agrees to be admitted to [facility] [place] further PNA work-up and monitoring. Chest Pain Course/Dx - Course Course Of Treatment: This patient is a 73 year old F with a PMHx of TX presenting to ED with a chief complaint of heart discomfort/soreness since . NSR at 60 BPM, inverted T waves in anterior and lateral leads, improved compared to previous EKGs. Blood work obtained. CXR revealed no active cardiopulmonary disease is noted. Discussed patient case with Dr. Kilgore, hospitalist, who accepted the patient for admission to [facility]. Patient will be admitted to [facility] with dx of chest pain. I discussed results with patient. Patient understands and agrees with this plan. - Diagnoses Provider Diagnoses: Chest pain - Provider Notifications Discussed Care Of Patient With: Vernon Kilgore Time Discussed With Above Provider: 13:22 Instructed by Provider To: Admit As Inpatient - Discussed patient case with Dr. Kilgore, hospitalist, who accepted the patient for admission to [facility]. Discharge - Sign-Out/Discharge Documenting (check all that apply): Patient Departure - Admit Patient Received Moderate/Deep Sedation with Procedure: No - Discharge Plan Condition: Good Disposition: ADMITTED TO [facility] - Billing Disposition and Condition Condition: GOOD Disposition: Admitted to [facility] - Attestation Statements Document Initiated by Scribe: Yes Documenting Scribe: Trent Mcfadden Provider For Whom Scribe is Documenting (Include Credential): Rito Schumacher MD Scribe Attestation: Trent Levy, scribed for Rito Schumacher MD on 02/18/19 at 1046. Scribe Documentation Reviewed: Yes Provider Attestation: The documentation as recorded by the scribe, Trent Mcfadden accurately reflects the service I personally performed and the decisions made by me, Rito Schumacher MD Status of Scribe Document: Viewed
[2019-02-17 12:11] LABS: Activated Partial Thrombo Time 29.8 seconds (26.0-38.0)
[2019-02-17 12:20] LABS: Albumin 3.8 g/dL (3.2-5.2); Albumin/Globulin Ratio 1.4 (1-3); BUN/Creatinine Ratio 20.2 (8-20); Calcium 8.9 mg/dL (8.6-10.3); EGFR African American 80.2 (>60); EGFR Non-African American 66.3 (>60); Globulin 2.8 g/dL (2-4); Potassium 3.7 mmol/L (3.5-5.0); Total Bilirubin 0.4 mg/dL (0.2-1.0); Total Protein 6.6 g/dL (6.4-8.9)
[2019-02-17 12:22] LABS: Troponin I 0.03 ng/mL (<0.04)
--- OUTSIDE RECORDS SUMMARY | 2019-02-17 13:07 | XMS REPORT | Continuity of Care Document ---
:1945 External Reference #:[id number] Author Name Jensen Dalia Care Team Providers Name Role Phone Fany Lenz MD Primary Care Physician Unavailable Payers Date Identification Numbers Payment Provider Subscriber Policy Number: [id number] Medicare Jonh Topete PayID: [id number] [address] [place] [address] Expires: 2018 Policy Number: [id number] Medicare Jonh Topete PayID: [id number] [address] [place] [address] Policy Number: [id number] [employer] Jonh Topete PayID: [id number] [address] [place] [address] Family History Date Family Member(s) Observation Comments Father Stroke First Brother Heart Disease First Brother Hypertension Grandfather Hypertension Paternal Grandfather Hypertension Paternal Grandmother Brain Cancer Social History Type Date Description Comments Sex Unknown Marital Status Lives With Alone Occupation Disabled Tobacco Use Start: Unknown End: Former Cigarette Smoker Unknown 5-10 Cigarettes Daily Smoking Status Reviewed: 01/22/19 Former Cigarette Smoker 5-10 Cigarettes Daily ETOH Use Occasionally consumes alcohol Tobacco Use Start: Unknown End: Patient is a former Unknown smoker Recreational Drug Use Denies Drug Use Exercise Type/Frequency Exercises regularly daily 2x day pt and cardio rehab at [facility] Allergies, Adverse Reactions, Alerts Active Allergies Reaction Severity Comments Date Amiodarone hypothyroidism, use with caution 11/08/2018 Inactive Allergies NKDA 02/03/2018 Medications Active Medications SIG Qnty Indications Ordering Date Provider Coreg 1 by mouth twice 180tabs Sunil Rich, 11/08/2018 3.125mg Tablets a day. DO FACC Levothyroxine Sodium Take One Tablet 30tabs Fany Lenz MD 11/02/2018 By Mouth Every 50mcg Tablets Day Melatonin 1 cap at bedtime Unknown 5mg Capsules Mushroom Elixir Blend sprinkle in tea. Unknown Magnesium Glycinate 1 tsp daily Unknown Powder Vitamin C 1 by mouth every Unknown 500mg Capsules day Coq10 1 by mouth daily Unknown 100mg Capsules Nitrostat one sl q5min up Unknown 0.4mg Tablets to 3 doses as Sub needed Losartan Potassium 1 by mouth every 90tabs Sunil Rich, 25mg day DO FACC Tablets Plavix 1 by mouth every 90tabs Sunil Rich, 75mg Tablets day DO FACC Lipitor 1 by mouth every 90tabs Sunil Rich, 80mg Tablets day DO FACC Aspirin 81 Low Dose 1 by mouth every 90units Sunil Rich, 81mg day DO FACC Chewtabs History Medications Coreg 1/2 tab by mouth Sunil Rich, 10/31/2018 - 6.25mg Tablets twice a day DO FACC 11/08/2018 Coreg 1 /2 tab by mouth 60tabs Harinder Ferrell MD 10/03/2018 - 6.25mg Tablets twice a day 10/03/2018 Micardis 1 by mouth every Unknown - 40mg Tablets day 10/03/2018 Amiodarone HCL 1 by mouth every Unknown - 200mg day 11/08/2018 Tablets Eliquis 1 by mouth twice a Unknown - 5mg Tablets day 10/04/2018 Coreg 1 by mouth twice a 180tabs Sunil Rich, - 3.125mg Tablets day. DO FACC 10/31/2018 Melatonin ER take one Unknown - 3mg tablet/capsule by 11/07/2018 Tablets ER mouth at bedtime. for insomnia Vital Signs Date Vital Result Comment 02/07/2019 1:04pm Height 63 inches 5'3" Weight 131.00 lb Heart Rate 59 /min BP Systolic 82 mmHg BP Diastolic 56 mmHg O2 % BldC Oximetry 96 % BMI (Body Mass Index) 23.2 kg/m2 01/22/2019 2:07pm Height 63 inches 5'3" Weight 131.00 lb Heart Rate 52 /min BP Systolic Sitting 112 mmHg BP Diastolic Sitting 70 mmHg Body Temperature 97.5 F O2 % BldC Oximetry 97 % BMI (Body Mass Index) 23.2 kg/m2 12/11/2018 1:12pm Height 63 inches 5'3" Weight 131.00 lb Heart Rate 56 /min BP Systolic Sitting 114 mmHg BP Diastolic Sitting 65 mmHg O2 % BldC Oximetry 98 % BMI (Body Mass Index) 23.2 kg/m2 11/08/2018 1:37pm Height 63 inches 5'3" Weight 137.00 lb Heart Rate 50 /min BP Systolic 112 mmHg Rue reg cuff BP Diastolic 62 mmHg Rue reg cuff BP Systolic Sitting 100 mmHg RUe reg cuff BP Diastolic Sitting 60 mmHg RUe reg cuff Respiratory Rate 15 /min BMI (Body Mass Index) 24.3 kg/m2 Ejection Fraction 35-40% 11/06/18 10/31/2018 2:57pm Height 63 inches 5'3" Weight 137.00 lb Heart Rate 56 /min BP Systolic 95 mmHg BP Diastolic 60 mmHg Body Temperature 98.0 F O2 % BldC Oximetry 96 % BMI (Body Mass Index) 24.3 kg/m2 10/05/2018 10:25am Height 64 inches 5'4" Weight [...] BMI (Body Mass Index) 23.3 kg/m2 Results Test Date Facility Test Result H/L Range Note Laboratory test 02/07/2019 [facility] CRP High <pending> finding [address] [place] [address] [phone] Homocysteine <pending> Vitamin D Total 25(Oh) <pending> Anti-Thyroid 02/07/2019 [facility] Thyroperoxidase AB <pending> [place] [address] [phone] Thyroglobulin AB <pending> Laboratory test 02/07/2019 [facility] Copper, Serum <pending> [place] [address] [phone] Zinc Serum <pending> TSH (Thyroid Stim Horm) <pending> Laboratory test 01/19/2019 [facility] TSH (Thyroid 5.24 mcIU/mL N 0.34-5.[address] Stim Horm) [place] [address] [phone] Free T4 (Free Thyroxine) 1.04 ng/dL N 0.61-1.12 T3 Free 2.70 pg/mL N 2.5-3.9 Laboratory test 12/06/2018 [facility] TSH (Thyroid 42.99 High 0.34-5.[address] Stim Horm) mcIU/[place] [address] [phone] Laboratory test 11/01/2018 [facility] TSH (Thyroid 17.04 High 0.34-5.[address] Stim Horm) mcIU/[place] [address] [phone] Free T4 (Free Thyroxine) 0.71 ng/dL N 0.61-1.12 Laboratory test 10/31/2018 [facility] TSH (Thyroid 15.87 High 0.34-5.[address] Stim Horm) mcIU/[place] [address] [phone] Procedures Date Code Description Status 11/08/2018 54461 EKG Tracing & Interpretation Completed 11/06/2018 35886 Echocardiogram, Limited Study Completed 11/06/2018 83895 Echocardiogram, Limited Study Completed 10/05/2018 34000 EKG Tracing & Interpretation Completed 09/28/2018 38913 EKG, Interpretation Only Completed 09/27/2018 97452 EKG, Interpretation Only Completed 09/26/2018 42686 EKG, Interpretation Only Completed 09/25/2018 06902 Cath PLMT&NJX L Ventriculog Img S&I Completed 09/25/2018 07733 ECHO Transthorasic Realtime 2D W Doppler & Color Flow Hosp Completed 09/25/2018 78989 EKG, Interpretation Only Completed 09/25/2018 36424 Revascularization Acute Total/Subtotal Occlusion Completed Encounters Type Date Location Provider Dx Diagnosis Office Visit 01/22/2019 [facility] Fany Lenz MD I10 Essential ( primary) 2:00p Medicine - Evelinaob hypertension E03.9 Hypothyroidism, unspecified Office Visit 12/11/2018 1:00p [facility] Fany Lenz I1Shara Essential ( primary) Medicine - Marva KHAN hypertension G47.00 Insomnia, unspecified I25.10 Athscl heart disease of [place] coronary artery w/o ang pctrs E03.9 Hypothyroidism, unspecified Office Visit 11/08/2018 1:40p Alejandra Duffy I25.5 Ischemic Cardiology Of Rich, DO cardiomyopathy [facility] FAC I25.10 Athscl heart disease of [place] coronary artery w/o ang pctrs I10 Essential (primary) hypertension I48.92 Unspecified atrial flutter Office Visit 10/31/2018 3:00p [facility] Fany Lenz, I25.10 [facility]thm[facility] KHAN disease of [place] coronary artery w/o ang pctrs I10 Essential (primary) hypertension G47.00 Insomnia, unspecified Office Visit 10/05/2018 10:30a [facility] Alvin Duffy I25.2 Old myocardial Of [facility] Rich, DO infarction FAC I25.5 Ischemic cardiomyopathy I25.10 Athscl heart disease of [place] coronary artery w/o ang pctrs I48.92 Unspecified atrial flutter I10 Essential (primary) hypertension E78.5 Hyperlipidemia, unspecified Office Visit 10/02/2018 10:44a [facility] I21.4 Non-St elevation Assoc,pc Shortle, [employer]OR (Nstemi) Hospitalists myocardial infarction I50.21 Acute systolic (congestive) heart failure F41.9 Anxiety disorder, unspecified I48.92 Unspecified atrial flutter I10 Essential (primary) hypertension R21 Rash and other nonspecific skin eruption Office Visit 10/01/2018 [facility] Ria Duffy I42.9 Cardiomyopathy, 11:36a Cardiology Merly Merritt unspecified I25.10 Athscl heart disease of [place] coronary artery w/o ang pctrs I21.9 Acute myocardial infarction, unspecified Office Visit 10/01/2018 10:44a [facility] I21.4 Non-St elevation Assoc,pc YOAV Hodgson (Nstemi) Hospitalists myocardial infarction I50.21 Acute systolic (congestive) heart failure R21 Rash and other nonspecific skin eruption I48.92 Unspecified atrial flutter I95.2 Hypotension due to drugs F41.9 Anxiety disorder, unspecified Office Visit 09/30/2018 10:43a [facility] I21.4 Non-St elevation Assoc,pc YOAV Hodgson (Nstemi) Hospitalists myocardial infarction I50.21 Acute systolic (congestive) heart failure I48.92 Unspecified atrial flutter I95.2 Hypotension due to drugs F41.9 Anxiety disorder, unspecified R21 Rash and other nonspecific skin eruption Office Visit 09/29/2018 11:26a [facility] Ria S. I25.10 Michaelmnrebecca heart Merly Merritt disease of [place] coronary artery w/o ang pctrs I25.5 Ischemic cardiomyopathy I48.91 Unspecified atrial fibrillation Office Visit 09/29/2018 10:43a [facility] I21.4 Non-St elevation Assoc,pc YOAV Hodgson (Nstemi) Hospitalists myocardial infarction I50.21 Acute systolic (congestive) heart failure I95.2 Hypotension due to drugs R21 Rash and other nonspecific skin eruption I48.92 Unspecified atrial flutter F41.9 Anxiety disorder, unspecified Office Visit 09/28/2018 10:42a [facility] [place] Jeovany I21.4 Non-St elevation Assoc,pc SHIRA Leblanc (Nstemi) Hospitalists myocardial infarction I50.21 Acute systolic (congestive) heart failure I10 Essential (primary) hypertension I48.92 Unspecified atrial flutter F41.9 Anxiety disorder, unspecified Office Visit 09/28/2018 [facility] Ria S. I42.9 Cardiomyopathy, 11:38a Cardiology Merly Merritt unspecified I48.91 Unspecified atrial fibrillation I21.9 Acute myocardial infarction, unspecified Office Visit 09/27/2018 10:42a [facility] I21.4 Non-St elevation Assoc,pc YOAV Mejia (Nstemi) Hospitalists myocardial infarction I48.92 Unspecified atrial flutter I50.21 Acute systolic (congestive) heart failure I11.0 Hypertensive heart disease with heart failure F41.9 Anxiety disorder, unspecified Office Visit 09/27/2018 5:02p [facility] Leatha Warren, I25.10 Athscl heart Of [facility] Merly disease of [place] coronary artery w/o ang pctrs I25.5 Ischemic cardiomyopathy I48.0 Paroxysmal atrial fibrillation Office Visit 09/26/2018 10:41a [facility] I21.4 Non-St elevation Assoc,fariba Mejia NP (Nstemi) Hospitalists myocardial infarction I48.92 Unspecified atrial flutter I50.21 Acute systolic (congestive) heart failure I11.0 Hypertensive heart disease with heart failure Office Visit 09/26/2018 3:01p [facility] Sharon Rosales, I21.4 Non- St elevation MOT[employer]SEM[employer] SUPERVISOR (Nstemi) myocardial infarction I25.10 Athscl heart disease of [place] coronary artery w/o ang pctrs I25.5 Ischemic cardiomyopathy Office Visit 09/25/2018 10:40a [facility] I21.4 Non-St elevation Assocfariba NP (Nstemi) Hospitalists myocardial infarction I10 Essential (primary) hypertension Office Visit 09/25/2018 2:42p [facility] Randy Quintana, I21.3 St elevation Of [facility] M.DJuliette, FACC, (Stemi) myocardial FSCAI infarction of [facility] site Office Visit 09/25/2018 4:35p [facility] Sunil SJuliette I50.9 Heart failure, Of [facility] Rich, DO unspecified FACC I21.3 St elevation (Stemi) myocardial infarction of [facility] site I10 Essential (primary) hypertension I20.9 Angina pectoris, unspecified Office Visit 09/24/2018 10:39a 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 leg M19.071 Primary osteoarthritis, right ankle and foot Plan of Treatment Future Appointment(s):10/05/2019 1:20 pm - F[facility] Lenz [facility] at [facility] - Lydia Mejia, NPE03.9 Hypothyroidism, unspecifiedFollow up:follow up 3-4 weeksRecommendations:G47.00 Insomnia, unspecifiedRecommendations:"When to Eat" book [facility] Wellness Physician Dr. Johan Baker - Cooking for Life cookbook Please review the handout on Insomnia Recommend not eating before 90 mins - 2 hours ascxsuR86.10 Atherosclerotic heart disease of [place] coronary artery withRecommendations: Cardiometabolic Diet - focus on nutrient dense foods.R53.83 Other fatigueRecommendations:Fatigue is multi-factorial food sensitivities can play a role. An elimination diet is a validated approach to try to pin point food sensitivities. Increase healthy fats in the diet with cold pressed extra virgin olive oil, flax seed, hemp oil, fish oil (wild caught EPA/DHA). Nuts, seeds, avocado. Stress can play a large role in fatigue. Daily stress relaxation techniques. Sleep: sleeping 8 hours a day. Exercise: 30-60 minutes daily of exercise. Keeping your blood sugar stable removing high glycemic foods. Adrenal fatigue (HPA [place] dysregulation) - Lifestyle changes can make a difference. Stress is a huge utility driver. Sleep is very important as is diet and exercise. Consider stress reduction techniques.
[2019-02-17] MEDS ORDERED: Acetaminophen TAB* 325 MG PO PRN (14:33)
[2019-02-17] MEDS ORDERED: Nitroglycerin TAB 0.4 MG* 0.4 MG TAB SL PRN (14:38)
[2019-02-17 15:02] LABS: Magnesium 2.3 mg/dL (1.9-2.7)
[2019-02-17 15:10] LABS: TSH (Thyroid Stimulating Horm) 1.23 mcIU/mL (0.34-5.60)
--- NOTE | 2019-02-17 16:36 | HP ---
CC: Dr. Lenz; Dr. Rich, Cardiology * HISTORY AND PHYSICAL: DATE OF ADMISSION: 02/17/19 PRIMARY CARE PROVIDER: Dr. Lenz. ATTENDING PHYSICIAN: Dr. Kilgore *(dictated by Evan Haq NP). CHIEF COMPLAINT: 1. Chest soreness. 2. Dry cough. 3. Dizziness. 4. Fatigue. 5. Back pain. HISTORY OF PRESENT ILLNESS: Ms. Topete is a 73-year-old female with a past medical history significant for hypertension, hearing loss, NSTEMI with stent in mid LAD, hypothyroid, ischemic cardiomyopathy, Aflutter post FL; who presented to the emergency department today with complaints of chest tenderness , cough, dizziness, fatigue, back pain. The patient reports that approximately 1 week ago, she started to have a dry cough at night that had been keeping her awake. She reports starting of this week, she started to feel much weaker. The patient explains that she feels weak even talking or listening to other people, walking up a flight of stairs, engaging in regular activities. She reports this has been ongoing since . She reports that today she presented to the emergency room as this weakness increased in severity and she did have an episode of dizziness after walking up stairs. She reports that she has also been experiencing some left-sided heart tenderness for several days. She reports this tenderness is internal and is not specific to one place, but often migrates under axilla, below breast, to the side of the breast. She rates this as "very slight." She currently has no chest tenderness. She reports that all of her symptoms, specifically the fatigue is increased with activity and alleviated with rest and being quiet. While in the emergency department, the patient had an EKG, which revealed sinus bradycardia with inverted T-waves in anterior leads. When compared to previous EKGs, this EKG is actually improved. The patient has also had labs, which were fairly unremarkable. Specifically, the patient had a troponin of 0.03 and a BNP which was 224. The patient has had repeat vital signs, which have remained stable. She has had no hypotension, tachycardia, or fever. The patient also had a chest x-ray, which revealed no acute cardiopulmonary disease. Given the patient's significant cardiac history, specifically her NSTEMI in September of this year which resulted in a cardiac catheterization and stent to her mid LAD, and ischemic cardiomyopathy, the hospitalists were asked to evaluate the patient for admission. PAST MEDICAL HISTORY: 1. Hypertension. 2. Hearing loss. 3. NSTEMI with stent to mid LAD. 4. Hypothyroid. 5. Ischemic cardiomyopathy. 6. Aflutter, post FL. PAST SURGICAL HISTORY: 1. Cataract removal. 2. Cardiac catheterization. HOME MEDICATIONS: 1. Magnesium oxide 400 mg p.o. daily. 2. Co Q10 at 200 mg p.o. daily. 3. Probiotic 1 cap p.o. daily. 4. Levothyroxine 50 mcg p.o. daily. 5. Vitamin C 500 mg p.o. daily. 6. Nitroglycerin 0.4 mg sublingual q.5 minutes p.r.n. 7. Losartan 25 mg p.o. daily. 8. Clopidogrel 75 mg p.o. daily. 9. Carvedilol 3.125 mg p.o. b.i.d. 10. Lipitor 80 mg p.o. at 1700. 11. Aspirin 81 mg p.o. daily. ALLERGIES: AMIODARONE, which resulted in hypothyroidism. FAMILY HISTORY: Mother is of natural causes. Father is in his late 80s secondary to a stroke. SOCIAL HISTORY: The patient was a brief smoker in her teens. The patient reports she drinks 1 glass of wine per week. The patient has no history of drug abuse. 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 She is recently and lives alone with family support nearby. The patient's surrogate decision maker will be her daughter, Yadira Berry, in the event she cannot make decisions for herself. REVIEW OF SYSTEMS: The patient currently denies chest tenderness, back pain, dizziness. She reports she continues to feel fatigued and experiences an occasional dry cough. A 14-point review of systems was completed and all others were negative. PHYSICAL EXAMINATION GENERAL: Ms. Topete is a 73-year-old female, who is lying in bed. Appears to be in no acute distress. Appears stated age. VITAL SIGNS: Temp 98.5, HR 55, RR 17, O2 saturation is 97% on room air, BP is 140/78. HEENT: EOMs intact. PERRLA. Oral mucosa is moist without lesions. Posterior pharynx is clear. NECK: Full range of motion. No lymphadenopathy. RESPIRATORY: Symmetrical chest expansion. No accessory muscle use. Lungs are clear to auscultation. No rhonchi, wheezes, or rales. Good aeration. CARDIAC: S1, S2 present. Regular rate and rhythm. No murmurs, rubs, or gallops. ABDOMEN: Soft, nontender to palpation. Bowel sounds normoactive. EXTREMITIES: No edema. No clubbing or cyanosis. Pedal pulses 2+ bilaterally. MUSCULOSKELETAL: Full range of motion. No pain or deformities. NEURO: The patient is awake, alert, and oriented x4. Motor strength is 5/5 in the upper and lower extremities. SKIN: Grossly intact without lesions. DIAGNOSTIC STUDIES/LAB DATA: WBC 5.2, hemoglobin 12.8, hematocrit 39, platelets 151. D-dimer less than 200. Sodium 136, potassium 3.7, chloride 106 , carbon dioxide 27, BUN 17, creatinine 0.84, glucose 132, lactic acid 0.9. Troponin 0.03, BNP 224. ASSESSMENT AND PLAN: Ms. Topete is a 73-year-old female with a past medical history significant for hypertension, hearing loss, ifp-QB-qlecqtiyo myocardial infarction with stent to mid LAD, hypothyroid, ischemic cardiomyopathy, atrial flutter post myocardial infarction, who presented to the emergency department today with complaints of chest tenderness, dry cough, dizziness, fatigue, back pain. The patient will be admitted OBV for: 1. Chest tenderness. The patient reports this chest tenderness has been going on for several days and is very slight. The patient reports it is not specific to one spot, but migrates. The patient denies aggravating or alleviating symptoms. Given the patient's history, we will cycle her troponins and have accompanying EKGs. We will also place her on tele. The patient had an echo on 11/06/18, which revealed an estimated ejection fraction of 40%. This is an improvement from her echo on 09/25/18, which had an estimated ejection fraction of 25% to 30%. I will refrain from ordering an echocardiogram at this time and decide based on further evaluation. The patient also mentions she has a followup with Dr. Rich on 03/07/19. 2. Dry cough. The patient reports she has had a dry cough that kept her up at night. I wonder if the patient has a little virus, which might be increasing her fatigue. The patient has no fever or other signs of infection. The patient 's chest x-ray is unremarkable and her lung exam is unremarkable. We will provide supportive care and monitor. 3. Dizziness. The patient reports 1 episode of dizziness after climbing up the stairs, which is what brought her to the emergency room. I will order orthostatic vital signs. Once again, I wonder if the patient has a small virus that might be increasing her fatigue and causing dizziness. 4. Fatigue. The patient has been experiencing fatigue since . This could be cardiac in nature; therefore, we will cycle troponins and repeat EKGs. I think it is more likely that the patient might have a virus or allergies. We will continue to monitor and provide supportive care. 5. Back pain. The patient presented with complaints of back pain, but she reports this is not new and has been going on for over 6 months and is worse when she is tired. We will provide supportive care and monitor. 6. Hypertension. We will continue the patient's home medications of losartan and carvedilol. 7. Hearing loss. Supportive care. 8. Sam-XD-rgdmmebgd myocardial infarction with stent to mid LAD. We will continue the patient's home medications of losartan, clopidogrel, Coreg, Lipitor , aspirin. The patient has followup with Dr. Rich on 03/07/19. 9. Hypothyroid. The patient has hypothyroidism after taking amiodarone. We will continue the patient's levothyroxine. I have also added on a TSH to her emergency department labs as this could be causing fatigue. 10. Ischemic cardiomyopathy. The patient's grn-LF-rmtobudef myocardial infarction resulted in ischemic cardiomyopathy and she did wear LifeVest for about a month. The patient's echo in October shows improvement from her echo in September. We will continue the patient's home medications. 11. Atrial flutter, post myocardial infarction. It is reported in her history that she did have an episode of atrial flutter while in the hospital after her non- ST-elevation myocardial infarction. We will place her on telemetry and monitor closely. 12. FEN: The patient will be given a heart-healthy diet with no caffeine. 13. Code status: The patient is a full code. 14. DVT prophylaxis: Based on the DVT Risk Assessment, the patient is moderate risk. I will order subcu heparin q.12 hours. TIME SPENT: Approximately 65 minutes was spent on this admission, greater than half the time was spent with the patient obtaining my history, performing physical exam, and reviewing my plan of care. The case has been reviewed with my attending, Dr. Kilgore, who is in agreement with my plan of care. EVAN HAQ, YOAV [id number]/CPS #: [id number]
[2019-02-17] MEDS ORDERED: Atorvastatin* 80 MG TAB PO SCH (17:00)
[2019-02-17] MEDS: Carvedilol TAB* 3.125 MG PO SCH (20:37)
[2019-02-17] MEDS: Heparin VIAL(*) 5000 UNITS/ML VIAL (FIVE THOUSAND) SUBCUT SCH (20:38)
[2019-02-18] MEDS ORDERED: Levothyroxine TAB* 50 MCG TAB PO SCH (06:00)
[2019-02-18 07:42] LABS: ABS Basophils 0.1 10^3/ul (0-0.2); ABS Eosinophils 0.1 10^3/ul (0-0.6); ABS Lymphocytes 1.1 10^3/ul (1.0-4.8); ABS Monocytes 0.6 10^3/ul (0-0.8); ABS Neutrophils 3.4 10^3/ul (1.5-7.7); Eosinophil % 1.8 %; Hematocrit 37 % (35-47); Hemoglobin 12.7 g/dL (12.0-16.0); Lymphocyte % 20.7 %; Mean Corpuscular HGB Conc 34 g/dL (31-36); Mean Corpuscular Hemoglobin 32 pg (27-31); Mean Corpuscular Volume 95 fL (80-97); Mean Platelet Volume 8.6 fL (7.4-10.4); Nucleated Red Blood Cells % 0.1; Platelet Count 131 10^3/uL (150-450); Red Blood Count 3.91 10^6 /uL (3.70-4.87); Red Cell Distribution Width 14 % (10-15); White Blood Count 5.2 10^3/uL (3.5-10.8)
[2019-02-18 07:51] LABS: Calcium 8.6 mg/dL (8.6-10.3); Potassium 4.2 mmol/L (3.5-5.0)
[2019-02-18 07:57] LABS: BUN/Creatinine Ratio 19.7 (8-20); EGFR Non-African American 74.4 (>60); HDL Cholesterol 36.6 mg/dL
[2019-02-18] MEDS: Heparin VIAL(*) 5000 UNITS/ML VIAL (FIVE THOUSAND) SUBCUT SCH (08:01)
[2019-02-18] MEDS: Carvedilol TAB* 3.125 MG PO SCH (08:04)
[2019-02-18] MEDS ORDERED: Losartan TAB* 25 MG PO SCH (09:00)
[2019-02-18] MEDS ORDERED: Aspirin 81 mg CHEW TAB* 81 MG TAB.CHEW PO SCH (09:00)
[2019-02-18] MEDS ORDERED: Magnesium Oxide TAB* 400 MG PO SCH (09:00)
[2019-02-18] MEDS ORDERED: Clopidogrel TAB* 75 MG PO SCH (09:00)
[2019-02-18] MEDS ORDERED: Lactobacillus Acidophilus* 1 TAB PO SCH (09:00)
[2019-02-18] MEDS ORDERED: COENZYME Q10 200 MG PO SCH (09:00)
[2019-02-18] MEDS ORDERED: Ascorbic Acid TAB* 500 MG PO SCH (09:00)
[2019-02-18 12:20] VITALS: BP 109/58
--- NOTE | 2019-02-18 20:37 | DS ---
CC: Dr. Lenz * DISCHARGE SUMMARY: DATE OF ADMISSION: 02/17/19 DATE OF DISCHARGE: 02/18/19 PRIMARY CARE PROVIDER: Dr. Lenz. DISPOSITION ON DISCHARGE: Home. CONDITION ON DISCHARGE: Good. PRIMARY DIAGNOSIS: Chest pain. SECONDARY DIAGNOSES: Include: 1. Hypertension. 2. Hearing loss. 3. History of [id number] myocardial infarction with stent to LAD this year. 4. Hypothyroidism. 5. Ischemic cardiomyopathy. 6. Atrial flutter, status post myocardial infarction. MEDICATIONS ON DISCHARGE: Unchanged from admission and include: 1. Magnesium oxide 400 daily. 2. CoQ10 200 mg daily. 3. Probiotic 1 cap daily. 4. Levothyroxine 50 mcg daily. 5. Vitamin C 500 mg daily. 6. Nitroglycerin sublingual every 5 minutes as needed for chest pain. 7. Losartan 25 mg daily. 8. Clopidogrel 75 mg daily. 9. Carvedilol 3.125 mg twice daily. 10. Lipitor 80 mg in the evening. 11. Aspirin 81 mg daily. DIAGNOSTIC STUDIES/LAB DATA: Pertinent laboratory data during the course of the hospital stay: Troponin I 0.03 peak, downtrend to 0.01. Total cholesterol 79. Hemoglobin A1c is 5.7. Pertinent imaging studies: Chest x-ray: No active cardiopulmonary disease is noted. HISTORY OF PRESENT ILLNESS AND HOSPITAL COURSE: This is a 73-year-old female with past medical history as outlined in the history of present illness on the day of admission including recent percutaneous intervention with stent to her mid LAD after presenting with NSTEMI, who presented to the hospital with a dry cough associated with chest discomfort, described as a soreness, associated with 1 episode of dizziness while walking up stairs. Because of her cough as well as dizziness walking up the stairs, she presented to the hospital, particularly because these symptoms were reminiscent of her previous symptoms with her NSTEMI. She was admitted. Serial troponins were negative. Symptoms improved without intervention. There are no events on telemetry. EKGs were nonischemic. The patient has followup with Dr. Rich in the beginning of March, which she was encouraged to keep. No complications with this hospital stay. At followup, please: 1. Evaluate the patient for continued symptom resolution. 2. Hemoglobin A1c is just borderline prediabetic, consider discussion and lifestyle interventions and/or therapeutic interventions as deemed necessary. 3. No other specific labs or vitals that need followup. Reasons to return to the hospital including, but not limited to recurrent or worsening symptoms, chest pain, shortness of breath, nausea, vomiting, lightheadedness, loss of consciousness or near loss of consciousness, bleeding from any source, inability to obtain or tolerate medications were discussed with the patient and she acknowledged understanding. TIME SPENT: Greater than 45 minutes was spent on the discharge of the patient, greater than half was spent [id number] with the patient. [id number]/[facility] #: [id number] FRANCK
== END 2019-02-18 16:00 | disposition home or self-care (01) ==
LOC: ED 11:29 → MEDTELE 14:33
PROVIDERS: ADMIT Internal Medicine; ATTEND Internal Medicine
DX: R07.9 Chest pain, unspecified (principal); R05 Cough; M54.9 Dorsalgia, unspecified; I10 Essential (primary) hypertension; R42 Dizziness and giddiness; I25.2 Old myocardial infarction; Z87.891 Personal history of nicotine dependence; H91.90 Unspecified hearing loss, unspecified ear; Z95.5 Presence of coronary angioplasty implant and graft; E03.9 Hypothyroidism, unspecified; I25.5 Ischemic cardiomyopathy; I48.92 Unspecified atrial flutter; R53.83 Other fatigue; Z79.82 Long term (current) use of aspirin; Z79.899 Other long term (current) drug therapy
CPT/HCPCS: 36415; 71046; 80048; 80053; 80061; 83036; 83605; 83735; 83880; 84443; 84484; 85025; 85379; 85610; 85730; 93005; 99283; A9270-GY; G0378; J1644

== ENCOUNTER 2020-05-22 11:15 | Observation (INO) ==
[2020-05-22 12:30] LABS: ABS Eosinophils 0.1 10^3/ul (0-0.6); ABS Monocytes 0.6 10^3/ul (0-0.8); ABS Neutrophils 3.9 10^3/ul (1.5-7.7); Eosinophil % 2.6 %; Hematocrit 41 % (35-47); Hemoglobin 13.8 g/dL (12.0-16.0); Mean Corpuscular HGB Conc 34 g/dL (31-36); Mean Corpuscular Hemoglobin 32 pg (27-31); Mean Corpuscular Volume 95 fL (80-97); Mean Platelet Volume 8.7 fL (7.4-10.4); Platelet Count 154 10^3/uL (150-450); Red Blood Count 4.27 10^6 /uL (3.70-4.87); Red Cell Distribution Width 14 % (10-15); White Blood Count 5.6 10^3/uL (3.5-10.8)
[2020-05-22] MEDS ORDERED: NS 0.9% 1000 ml BAG 1,000 ML IV SCH (12:30)
[2020-05-22 12:48] LABS: Activated Partial Thrombo Time 22.8 seconds (26.0-38.0)
[2020-05-22 12:49] LABS: Albumin 3.6 g/dL (3.2-5.2); Albumin/Globulin Ratio 1.3 (1-3); BUN/Creatinine Ratio 21.1 (8-20); Calcium 8.8 mg/dL (8.6-10.3); EGFR African American 97.1 (>60); EGFR Non-African American 80.3 (>60); Globulin 2.8 g/dL (2-4); Magnesium 2.1 mg/dL (1.9-2.7); Potassium 4.1 mmol/L (3.5-5.0); Total Bilirubin 0.5 mg/dL (0.2-1.0); Total Protein 6.4 g/dL (6.4-8.9)
[2020-05-22] MEDS ORDERED: PEG 3000 GI LAVAGE 1 GALLON PO ONE (14:14)
[2020-05-22 19:00] LABS: Hematocrit 37 % (35-47); Hemoglobin 12.6 g/dL (12.0-16.0); Mean Corpuscular HGB Conc 34 g/dL (31-36); Mean Corpuscular Hemoglobin 32 pg (27-31); Mean Corpuscular Volume 96 fL (80-97); Mean Platelet Volume 8.4 fL (7.4-10.4); Platelet Count 132 10^3/uL (150-450); Red Blood Count 3.89 10^6 /uL (3.70-4.87); Red Cell Distribution Width 14 % (10-15); White Blood Count 5.6 10^3/uL (3.5-10.8)
[2020-05-23 06:40] LABS: Hematocrit 38 % (35-47); Hemoglobin 12.7 g/dL (12.0-16.0); Mean Corpuscular HGB Conc 33 g/dL (31-36); Mean Corpuscular Hemoglobin 32 pg (27-31); Mean Corpuscular Volume 96 fL (80-97); Mean Platelet Volume 9.1 fL (7.4-10.4); Platelet Count 136 10^3/uL (150-450); Red Blood Count 3.95 10^6 /uL (3.70-4.87); Red Cell Distribution Width 14 % (10-15); White Blood Count 5.9 10^3/uL (3.5-10.8)
[2020-05-23] MEDS ORDERED: Lactated Ringers 1000 ml BAG 1,000 ML IV ONE (12:53)
[2020-05-23] MEDS ORDERED: fentaNYL 100 mcg/2 ml 50 MCG/ML VIAL ONE (15:26)
[2020-05-23] MEDS ORDERED: Midazolam 10 mg/10 ml VIAL 1 mg/ml 10 ml VIAL (10 mg) ONE (15:26)
[2020-05-23 17:23] VITALS: BP 112/51
== END 2020-05-23 20:05 | disposition home or self-care (01) ==
LOC: MED 11:15 → ED 11:15 → MEDTELE 11:15 → MED 20:24
PROVIDERS: ADMIT Internal Medicine; ATTEND Internal Medicine